=== PATIENT | male | born 1940 ===

== ENCOUNTER → 2017-10-24 | Emergency (ER) | payer OTHER ==
[~2017-10-24] VITALS: Ht 167.6 cm; Wt 63.5 kg
== END | disposition home or self-care (01) ==
LOC: ER 18:26
DX: L03.115 Cellulitis of right lower limb (principal)

== ENCOUNTER 2023-04-05 15:34 | Outpatient (CLI) | payer OTHER | END 2023-04-05 15:38 | disposition home or self-care (01) | LOC: RAD 15:34 | DX: R05.8 Other specified cough (principal) ==

== ENCOUNTER 2023-04-09 08:57 | Outpatient (CLI) | payer OTHER | END 2023-04-09 08:59 | disposition home or self-care (01) | LOC: SONOGRAMA 08:57 | DX: R10.84 Generalized abdominal pain (principal) ==

== ENCOUNTER 2023-08-19 14:46 | Outpatient (CLI) | payer OTHER | END 2023-08-19 14:53 | disposition home or self-care (01) | LOC: SONOGRAMA 14:46 | DX: R63.4 Abnormal weight loss (principal); Z88.1 Allergy status to other antibiotic agents ==

== ENCOUNTER 2024-04-12 13:06 | Emergency (ER) | payer OTHER ==
[~2024-04-12] VITALS: Ht 167.6 cm; Wt 48.1 kg
[2024-04-12] MEDS ORDERED: LIDOCAINE HCL 1% 10ML VIAL PERCUT ONE (14:45)
[2024-04-12] MEDS ORDERED: TETANUS DIPHTHERIA TOX. ADSOR 5 ML VIAL IM ONE (15:12)
[2024-04-12] MEDS ORDERED: CEFTRIAXONE SODIUM 1,000 MG VIAL ONE (15:12)
[2024-04-12] MEDS ORDERED: CEFTRIAXONE SODIUM 1,000 MG VIAL IM ONE (15:15)
[2024-04-12] MEDS ORDERED: TETANUS & DIPHTHERIA TOX,ADULT 0.5 ML VIAL IM ONE (15:15)
[2024-04-12 15:45] LABS: HEMATOCRIT 33.5 % (39.0-48.0); HEMOGLOBIN 11.5 g/dL (13-16.00); MEAN CELL VOLUME 85.4 fL (80.0-100.00); MEAN CORPUSCULAR HEMOGLOBIN 29.3 pg (27.00-32.0); MEAN CORPUSCULAR HGB CONC 34.3 g/dl (32.0-36.0); PLATELET COUNT 179 K/uL (150-450); RED BLOOD COUNT 3.92 M/uL (4.00-6.00); RED CELL DISTRIBUTION WIDTH 17.5 % (11.5-14.5)
[2024-04-12 16:10] LABS: ALBUMIN 3.3 gm/dL (3.4-5.0); BILIRUBIN TOTAL 0.65 mg/dL (0.3-1.2); CALCIUM 9.3 mg/dL (8.5-10.1); CREATININE SERUM 0.62 mg/dL (0.70-1.30); GFR 124.2; GLOBULINA 4.2 G/DL (2.4-3.5); POTASSIUM 3.81 mEq/L (3.5-5.1); TOTAL PROTEIN 7.5 gm/dL (6.4-8.2)
[2024-04-12 16:20] LABS: PH,URINE 6.5 (5.0-8.0); URINE APPEARANCE Cloudy; URINE BILIRRUBIN Negative (NEGATIVE); URINE BLOOD Negative; URINE COLOR Dark Yellow; URINE GLUCOSE Negative (NEGATIVE); URINE LEUKOCYTE Trace; URINE NITRATE Negative; URINE PROTEIN 30 (NEGATIVE)
[2024-04-12 16:28] LABS: URINE BACTERIA 42.8 uL (0.0-1933); URINE EPITHELIAL CELLS 35.3 uL (0.0-38.8); URINE RBC 43.2 uL (0.0-20.8); URINE WBC 17.7 uL (0.0-23.2)
[2024-04-12] MEDS ORDERED: DUI500 PO (17:20)
== END 2024-04-12 17:36 ==
LOC: ER 13:06
PROVIDERS: Nurse Practitioner Family
DX: S01.81XA Laceration without foreign body of other part of head, initial encounter (principal); S50.812A Abrasion of left forearm, initial encounter; S09.90XA Unspecified injury of head, initial encounter; W19.XXXA Unspecified fall, initial encounter; Y93.89 Activity, other specified; Y92.89 Other specified places as the place of occurrence of the external cause; Y99.8 Other external cause status; Z88.1 Allergy status to other antibiotic agents
CPT/HCPCS: 12002; 36415; 70450; 71046; 72125; 73020; 73070; 73100; 73521; 90471; 90714; 96372; 99284; J0696; J1670